=== PATIENT | female | born 1960 | race Caucasian/White ===

== ENCOUNTER → 2018-04-01 15:16 | Outpatient (CLI) | payer OTHER, SELFPAY ==
[2018-04-01 15:42] LABS: Add Manual Diff / Slide Review NO; Basophils Percent Auto 0.5 % (0-2); Eosinophils Percent Auto 3.1 % (2-4); Hematocrit 38.5 % (36-46); Hemoglobin 12.9 g/dL (12.0-16.0); Lymphocytes Percent Auto 29.9 % (25-40); Mean Corpuscular HGB Conc 33.4 % (30-36); Mean Corpuscular Hemoglobin 28.1 PG (26-34); Monocytes Percent Auto 7.8 % (3-14); Neutrophils Absolute Auto 4100 /uL (3000-5900); Neutrophils Percent Auto 58.7 % (50-75); Platelet Count 222 X10^3/uL (150-400); Red Blood Cell Count 4.59 X10^6/uL (4.0-5.2); Red Cell Distribution Width 13.3 % (11.6-14.8); White Blood Cell Count 6.9 X10^3/uL (4.5-11.0)
[2018-04-01 16:26] LABS: Alanine Aminotransferase 25 IU/L (9-52); Albumin 4.2 g/dL (3.5-5.0); Albumin Globulin Ratio 1.4 (1.0-2.8); Alkaline Phosphatase 104 U/L (38-126); Aspartate Aminotransferase 33 IU/L (14-36); Bilirubin Total 0.3 mg/dL (0.2-1.3); Blood Urea Nitrogen 16 mg/dL (7-17); Calcium 9.5 mg/dL (8.4-10.2); Carbon Dioxide 25 mmol/L (22-32); Chloride 104 mmol/L (98-107); Estimated Glomerular Filt Rate > 60.0 mL/min (>60); Globulin 2.9 g/dL (1.7-4.1); Glucose 94 mg/dL (70-100); HEMOLYSIS < 15 (0-50); Potassium 4.1 mmol/L (3.4-5.1); Sodium 139 mmol/L (137-145); Total Protein 7.1 g/dL (6.3-8.2)
[2018-04-05 08:14] LABS: Cancer Antigen 27.29 17 U/mL (< 38)
== END ==
PROVIDERS: PCP Physician Assistant Medical; Visit Provider Nurse Practitioner Gerontology
DX: C50.919 Malignant neoplasm of unspecified site of unspecified female breast (principal); N63.20 Unspecified lump in the left breast, unspecified quadrant
CPT/HCPCS: 36415; 80053; 85025; 86300

== ENCOUNTER → 2018-04-29 12:45 | Outpatient (CLI) | payer OTHER, SELFPAY ==
--- NOTE | 2018-04-29 12:46 | DI.MG.S_ITS ---
BILATERAL DIGITAL DIAGNOSTIC MAMMOGRAM 3D/2D POST LUMPECTOMY: 04/29/2018 CLINICAL: Patient reports diffuse left breast firmness. Personal history of breast cancer. Family history of breast cancer. Comparison is made to exams dated: 04/03/2017 mammogram, 01/02/2016 mammogram, and 02/20/2016 breast MRI [facility]. The tissue of both breasts is extremely dense, which lowers the sensitivity of mammography. Patient reports diffuse left breast firmness but is unable to point to a focal location of firmness at the time of today's exam. There are postsurgical changes of the upper outer left breast including surgical clips, scarring, and areas of fat necrosis. There is an oval obscured mass in the right breast at anterior depth central to just inferior to the nipple. There are bilateral mole markers. No other significant masses, calcifications, or other findings are seen in either breast. IMPRESSION: INCOMPLETE: NEEDS ADDITIONAL IMAGING EVALUATION 1) Patient reports diffuse left breast firmness but is unable to point to a focal location of firmness at the time of today's exam. As such, a targeted ultrasound could not be performed. There are postsurgical changes of the upper outer left breast including surgical clips, scarring, and areas of fat necrosis, which could contribute to the patient's reported sensation of firmness in the left breast. 2) There is a greater than 1 cm oval obscured mass in the right breast at anterior depth central to just inferior to the nipple. A targeted ultrasound is recommended for further evaluation. This exam was interpreted at Station ID: [id number]. NOTE: For mammograms, a report in lay terms will be sent to the patient. Approximately 15% of breast malignancies will not be visualized mammographically. In the management of a palpable breast mass, a negative mammogram must not discourage biopsy of a clinically suspicious lesion. Electronically Signed By: Rob Weiss M.D. ecl/:04/30/2018 09:15:06 copy to: Mackenzie Granda letter sent: Additional Imaging Needed ACR BI-RADS Category 0: Incomplete 3340F
--- NOTE | 2018-04-29 13:53 | DI.US.S_ITS ---
ULTRASOUND OF RIGHT BREAST: 04/29/2018 CLINICAL: Patient returns today to evaluate a density in the right breast. Comparison is made to exams dated: 04/29/2018 mammogram, 04/03/2017 mammogram, 02/20/2016 breast MRI, 01/02/2016 mammogram - [facility], and 07/09/2015 mammogram - [facility]. Real-time and Doppler ultrasound of the lower right breast along the 5-6 o'clock radians were performed. Bobby scale images of the real-time examination were reviewed. There is a benign 1.5 cm x 1.5 cm x 1.4 cm oval cyst in the right breast at 5 o'clock in the retroareolar region. This oval cyst is hypoechoic with internal echoes and posterior acoustic enhancement. This correlates with mammography findings. Color flow imaging demonstrates that there is no vascularity present. IMPRESSION: BENIGN 1) The 1.5 cm x 1.5 cm x 1.4 cm oval cyst in the right breast is consistent with a complicated cyst and is benign. There is no sonographic evidence of malignancy in the imaged portions of the right breast. A 1 year screening mammogram is recommended. The patient is advised to monitor her breasts and to return sooner for re-evaluation should she feel anything grow or change. 2) Patient reports diffuse left breast firmness but is unable to point to a focal location of firmness at the time of today's exam. As such, a targeted left breast ultrasound could not be performed. There are postsurgical changes of the upper outer left breast including surgical clips, scarring, and areas of fat necrosis on diagnostic mammography performed earlier the same day, which could contribute to the patient's reported sensation of firmness in the left breast. Clinical follow-up recommended for further evaluation and management. This exam was interpreted at Station ID: [id number]. Electronically Signed By: Rob Weiss M.D. ecl/:04/30/2018 09:40:12 copy to: Mackenzie Granda letter sent: Clinical Evaluation Ultrasound BI-RADS: 2 Benign
== END ==
PROVIDERS: PCP Physician Assistant Medical; Visit Provider Nurse Practitioner Gerontology
DX: R92.8 Other abnormal and inconclusive findings on diagnostic imaging of breast (principal); N60.01 Solitary cyst of right breast; Z85.3 Personal history of malignant neoplasm of breast; Z80.3 Family history of malignant neoplasm of breast
CPT/HCPCS: 76642; 77066; G0279

== ENCOUNTER → 2018-07-28 15:32 | Outpatient (CLI) | payer OTHER, SELFPAY ==
[2018-07-28 16:01] LABS: Add Manual Diff / Slide Review NO; Basophils Absolute Auto 0 /uL (0-100); Basophils Percent Auto 0.7 % (0-2); Eosinophils Absolute Auto 200 /uL (0-450); Eosinophils Percent Auto 3.9 % (2-4); Hematocrit 39.2 % (36-46); Hemoglobin 13.1 g/dL (12.0-16.0); Lymphocytes Absolute Auto 1700 /uL (1100-4500); Lymphocytes Percent Auto 27.2 % (25-40); Mean Corpuscular HGB Conc 33.5 % (30-36); Mean Corpuscular Hemoglobin 28.3 PG (26-34); Mean Corpuscular Volume 84.3 fL (80-100); Monocytes Absolute Auto 500 /uL (0-900); Monocytes Percent Auto 7.7 % (3-14); Neutrophils Absolute Auto 3900 /uL (1500-7000); Neutrophils Percent Auto 60.5 % (50-75); Platelet Count 229 X10^3/uL (150-400); Red Blood Cell Count 4.65 X10^6/uL (4.0-5.2); Red Cell Distribution Width 13.3 % (11.6-14.8); White Blood Cell Count 6.4 X10^3/uL (4.5-11.0)
[2018-07-28 16:15] LABS: Alanine Aminotransferase 28 IU/L (9-52); Albumin 4.4 g/dL (3.5-5.0); Albumin Globulin Ratio 1.6 (1.0-2.8); Alkaline Phosphatase 94 U/L (38-126); Aspartate Aminotransferase 31 IU/L (14-36); BUN Creatinine Ratio 21.4 (6-22); Bilirubin Total 0.2 mg/dL (0.2-1.3); Blood Urea Nitrogen 15 mg/dL (7-17); Calcium 9.2 mg/dL (8.4-10.2); Carbon Dioxide 24 mmol/L (22-32); Chloride 103 mmol/L (98-107); Estimated Glomerular Filt Rate > 60.0 mL/min (>60); Globulin 2.8 g/dL (1.7-4.1); Glucose 121 mg/dL (70-100); HEMOLYSIS 18 (0-50); Potassium 3.9 mmol/L (3.4-5.1); Sodium 137 mmol/L (137-145); Total Protein 7.2 g/dL (6.3-8.2)
[2018-07-28 16:32] LABS: Follicle Stimulating Hormone 7.23 mIU/mL
[2018-07-28 16:38] LABS: Luteinizing Hormone < 0.22 mIU/mL
== END ==
PROVIDERS: PCP Physician Assistant Medical; Visit Provider Nurse Practitioner Gerontology
DX: C50.912 Malignant neoplasm of unspecified site of left female breast (principal)
CPT/HCPCS: 80053; 83001; 83002; 85025

== ENCOUNTER → 2019-05-27 11:14 | Outpatient (CLI) | payer OTHER, SELFPAY ==
--- NOTE | 2019-05-27 11:16 | DI.MG.S_ITS ---
BILATERAL DIGITAL SCREENING MAMMOGRAM 3D/2D WITH CAD: 05/27/2019 CLINICAL: Routine screening. Personal history of left breast cancer. Family history of breast cancer. Comparison is made to exams dated: 05/27/2019 mammogram, 04/29/2018 mammogram, 04/03/2017 mammogram, 03/27/2015 mammogram, and 01/02/2016 mammogram - [facility]. The tissue of both breasts is extremely dense, which lowers the sensitivity of mammography. Current study was also evaluated with a Computer Aided Detection (CAD) system. There are benign calcifications in the left breast. There also are benign post operative findings in the left breast. No significant masses, calcifications, or other findings are seen in either breast. There has been no significant interval change. IMPRESSION: There is no mammographic evidence of malignancy. A 1 year screening mammogram is recommended. This exam was interpreted at Station ID: [id number]. NOTE: For mammograms, a report in lay terms will be sent to the patient. Approximately 15% of breast malignancies will not be visualized mammographically. In the management of a palpable breast mass, a negative mammogram must not discourage biopsy of a clinically suspicious lesion. Electronically Signed By: Tatum hewitt/sofi:05/27/2019 13:53:28 copy to: Mackenzie Granda copy to: MARIBELL WINKLER letter sent: Normal Exam ACR BI-RADS Category 2: Benign Finding(s) 3342F
== END ==
PROVIDERS: PCP Physician Assistant Medical; Visit Provider Radiology Radiation Oncology
DX: Z12.31 Encounter for screening mammogram for malignant neoplasm of breast (principal); C50.912 Malignant neoplasm of unspecified site of left female breast; Z80.3 Family history of malignant neoplasm of breast; Z17.0 Estrogen receptor positive status [ER+]; Z79.811 Long term (current) use of aromatase inhibitors
CPT/HCPCS: 77063; 77067

== ENCOUNTER → 2020-02-29 14:39 | Outpatient (CLI) | payer OTHER, SELFPAY | PROVIDERS: PCP Physician Assistant Medical; Referring Provider Internal Medicine Hematology & Oncology; Visit Provider Internal Medicine Hematology & Oncology | DX: C50.912 Malignant neoplasm of unspecified site of left female breast (principal); M85.851 Other specified disorders of bone density and structure, right thigh; Z78.0 Asymptomatic menopausal state | CPT/HCPCS: 77080 ==

== ENCOUNTER → 2020-05-28 12:22 | Outpatient (CLI) | payer OTHER, SELFPAY ==
--- NOTE | 2020-05-28 12:23 | DI.MG.S_ITS ---
BILATERAL DIGITAL SCREENING MAMMOGRAM 3D/2D WITH CAD: 05/28/2020 CLINICAL: Routine screening. Breast cancer. Comparison is made to exams dated: 05/27/2019 mammogram, 05/27/2019 mammogram, and 04/29/2018 mammogram - [facility]. The tissue of both breasts is extremely dense, which lowers the sensitivity of mammography. Current study was also evaluated with a Computer Aided Detection (CAD) system. There are grouped fine calcifications in the right breast central to the nipple anterior depth. There are surgical clips in the left breast at 1 o'clock posterior depth. This is not significantly changed and correlates with surgery. There is architectural distortion, a post-surgical scar, skin retraction, thickening, and trabecular thickening associated with the surgical clips. No other significant masses or calcifications are seen in either breast. IMPRESSION: INCOMPLETE: NEEDS ADDITIONAL IMAGING EVALUATION The grouped fine calcifications in the right breast central to the nipple anterior depth are indeterminate. Mediolateral, spot magnification, and additional views are recommended. This exam was interpreted at Station ID: [id number]. NOTE: For mammograms, a report in lay terms will be sent to the patient. Approximately 15% of breast malignancies will not be visualized mammographically. In the management of a palpable breast mass, a negative mammogram must not discourage biopsy of a clinically suspicious lesion. Electronically Signed By: David wilcox/sofi:05/29/2020 10:36:26 copy to: MARIBELL WINKLER letter sent: Additional Imaging Needed ACR BI-RADS Category 0: Incomplete 3340F
== END ==
PROVIDERS: PCP Physician Assistant Medical; Referring Provider Internal Medicine Hematology & Oncology; Visit Provider Internal Medicine Hematology & Oncology
DX: Z12.31 Encounter for screening mammogram for malignant neoplasm of breast (principal); C50.919 Malignant neoplasm of unspecified site of unspecified female breast
CPT/HCPCS: 77063; 77067

== ENCOUNTER → 2020-06-21 13:31 | Outpatient (CLI) | payer OTHER, SELFPAY ==
--- NOTE | 2020-06-21 | DI.MG.S_ITS ---
UNILATERAL RIGHT DIGITAL DIAGNOSTIC MAMMOGRAM 3D/2D WITH ADDITIONAL VIEWS: 06/21/2020 CLINICAL: Additional evaluation requested from prior study. Comparison is made to exams dated: 05/28/2020 mammogram, 05/27/2019 mammogram, and 04/29/2018 mammogram - [facility]. The tissue of right breast is extremely dense, which lowers the sensitivity of mammography. There are benign grouped fine calcifications in the right breast central to the nipple anterior depth. These are not seen in additional views. No other significant masses or calcifications are seen in the breast. IMPRESSION: BENIGN There is no mammographic evidence of malignancy. Return to annual mammogram screening schedule is recommended. This exam was interpreted at Station ID: [id number]. NOTE: For mammograms, a report in lay terms will be sent to the patient. Approximately 15% of breast malignancies will not be visualized mammographically. In the management of a palpable breast mass, a negative mammogram must not discourage biopsy of a clinically suspicious lesion. Electronically Signed By: Chuy Hines acr/:06/21/2020 14:07:22 copy to: MARIBELL WINKLER letter sent: Normal Exam ACR BI-RADS Category 2: Benign Finding(s) 3342F
== END ==
PROVIDERS: PCP Physician Assistant Medical; Referring Provider Internal Medicine Hematology & Oncology; Visit Provider Internal Medicine Hematology & Oncology
DX: R92.8 Other abnormal and inconclusive findings on diagnostic imaging of breast (principal)
CPT/HCPCS: 77065; G0279

== ENCOUNTER → 2021-06-26 15:18 | Outpatient (CLI) | payer OTHER, SELFPAY ==
--- NOTE | 2021-06-26 15:19 | DI.MG.S_ITS ---
BILATERAL DIGITAL SCREENING MAMMOGRAM 3D/2D WITH CAD: 06/26/2021 CLINICAL: Routine screening. Personal history of left breast cancer. Family history of breast cancer. Comparison is made to exams dated: 06/21/2020 mammogram, 05/28/2020 mammogram, and 05/27/2019 mammogram - [facility]. The tissue of both breasts is extremely dense, which lowers the sensitivity of mammography. Current study was also evaluated with a Computer Aided Detection (CAD) system. No significant masses, calcifications, or other findings are seen in either breast. There has been no significant interval change. IMPRESSION: NEGATIVE There is no mammographic evidence of malignancy. A 1 year screening mammogram is recommended. This exam was interpreted at Station ID: [id number]. NOTE: For mammograms, a report in lay terms will be sent to the patient. Approximately 15% of breast malignancies will not be visualized mammographically. In the management of a palpable breast mass, a negative mammogram must not discourage biopsy of a clinically suspicious lesion. Electronically Signed By: Chan Hairston M.D., jr/sofi:06/27/2021 10:45:21 copy to: MARIBELL WINKLER letter sent: Normal Exam ACR BI-RADS Category 1: Negative 3341F
== END ==
PROVIDERS: PCP Physician Assistant Medical; Referring Provider Physician Assistant Medical; Visit Provider Physician Assistant Medical
DX: Z12.31 Encounter for screening mammogram for malignant neoplasm of breast (principal); Z85.3 Personal history of malignant neoplasm of breast; Z80.3 Family history of malignant neoplasm of breast
CPT/HCPCS: 77063; 77067

== ENCOUNTER → 2022-02-10 10:20 | Outpatient (CLI) | payer OTHER, SELFPAY | PROVIDERS: PCP Physician Assistant Medical; Referring Provider Internal Medicine Hematology & Oncology; Visit Provider Internal Medicine Hematology & Oncology | DX: Z13.820 Encounter for screening for osteoporosis (principal); Z78.0 Asymptomatic menopausal state; M85.851 Other specified disorders of bone density and structure, right thigh; M85.852 Other specified disorders of bone density and structure, left thigh | CPT/HCPCS: 77080; 77081 ==

== ENCOUNTER 2022-12-23 13:39 | Emergency (ER) | payer OTHER, SELFPAY ==
[2022-12-23] VITALS (8 sets, daily range): BP systolic 117–153; BP diastolic 72–88; PULSE 56–66; RESP 18; TEMP 36.4; O2SAT 95–99; BMI 27.2
--- NOTE | 2022-12-23 13:53 | DI.RAD.S_ITS ---
PROCEDURE: XR CHEST 1V INDICATIONS: chest pain TECHNIQUE: One view of the chest was acquired. COMPARISON: [facility], , CHEST 1 VIEW, 03/22/2014, 10:23. FINDINGS: Surgical changes and devices: None. Lungs and pleura: Lungs are clear. No pleural effusions or pneumothorax. Mediastinum: Mildly tortuous thoracic aorta is seen. Heart size is normal. Bones and chest wall: No suspicious bony lesions. Overlying soft tissues appear unremarkable. IMPRESSION: No acute cardiopulmonary pathology. Dictated by: Randolph White M.D. on 12/23/2022 at 14:26 Approved by: Randolph White M.D. on 12/23/2022 at 14:27
[2022-12-23 14:40] LABS: Add Manual Diff / Slide Review NO; Basophils Absolute Auto 0 /uL (0-100); Basophils Percent Auto 0.6 % (0-2); Eosinophils Absolute Auto 200 /uL (0-450); Eosinophils Percent Auto 3.3 % (2-4); Hematocrit 38.7 % (36-46); Lymphocytes Absolute Auto 1800 /uL (1100-4500); Lymphocytes Percent Auto 27.8 % (25-40); Mean Corpuscular HGB Conc 33.6 % (30-36); Mean Corpuscular Hemoglobin 27.9 PG (26-34); Monocytes Absolute Auto 400 /uL (0-900); Monocytes Percent Auto 6.7 % (3-14); Neutrophils Absolute Auto 4000 /uL (1500-7000); Neutrophils Percent Auto 61.6 % (50-75); Platelet Count 258 X10^3/uL (150-400); Red Blood Cell Count 4.67 X10^6/uL (4.0-5.2); Red Cell Distribution Width 13.4 % (11.6-14.8); White Blood Cell Count 6.5 X10^3/uL (4.5-11.0)
[2022-12-23 14:49] LABS: Prothrombin Time 11.2 SECONDS (10.1-12.7)
[2022-12-23 14:51] LABS: Alanine Aminotransferase 22 IU/L (<35); Albumin 4.3 g/dL (3.5-5.0); Albumin Globulin Ratio 1.4 (1.0-2.8); Alkaline Phosphatase 99 U/L (38-126); Aspartate Aminotransferase 28 IU/L (14-36); Bilirubin Total 0.4 mg/dL (0.2-1.3); Blood Urea Nitrogen 17 mg/dL (7-17); Calcium 9.2 mg/dL (8.4-10.2); Carbon Dioxide 25 mmol/L (22-32); Chloride 102 mmol/L (98-107); Creatine Kinase 68 U/L (30-135); Estimated Glomerular Filt Rate > 60 mL/min (>60); Glucose 110 mg/dL (80-110); HEMOLYSIS < 15 (0-50); Lipase 121 U/L (23-300); Magnesium 2.1 mg/dL (1.6-2.3); Potassium 3.8 mmol/L (3.4-5.1); Sodium 134 mmol/L (137-145); Total Protein 7.3 g/dL (6.3-8.2)
[2022-12-23 14:52] LABS: PTT Partial Thromboplastin Tim 30 SECONDS (26-36)
[2022-12-23 15:01] LABS: Troponin I < 0.012 ng/mL (0.01-0.034)
--- NOTE | 2022-12-23 15:53 | ED_ITS ---
HPI - Chest Pain General Chief Complaint: Chest Pain Stated Complaint: Heart issues, sent from urgent care Time Seen by Provider: 12/23/22 14:41 Source: patient Mode of arrival: Ambulatory Limitations: no limitations History of Present Illness HPI narrative: Patient here for atypical chest pain. Last night she had right jaw pain radiating down to her chest. It lasted about 30 minutes. No dyspnea no syncope no nausea no diaphoresis. This morning she had a bandlike epigastric discomfort. She is had this before. Patient denies any previous history of heart disease. No family history of coronary disease. Does not smoke. She does have history of breast cancer. Has not had a stress test in the past. Denies any recent injury or illness. Related Data Home Medications Medication Instructions Recorded Confirmed magnesium citrate 100 mg tablet 100 mg PO Q DAY ##0 10/20/17 02/27/22 ascorbic acid (vitamin C) 1,000 mg 500 mg PO DAILY 04/06/18 02/27/22 tablet (Vitamin C) cholecalciferol (vitamin D3) 50 2,000 unit PO DAILY 04/06/18 02/27/22 mcg (2,000 unit) capsule (Vitamin D3) omega-3s 300 [id number] 1 cap DAILY 04/06/18 02/27/22 [id number] oil 1,000 mg capsule (Barton-3 Fish Oil) Previous Rx's Medication Instructions Recorded venlafaxine 37.5 mg 37.5 mg PO QDAY #60 caps 09/08/17 capsule,extended release 24 hr Allergies Allergy/AdvReac Type Severity Reaction Status Date / Time latex Allergy Mild ITCHY, RASH Verified 12/23/22 16:16 SEASONAL ALLERGIES Allergy Unknown Uncoded 12/23/22 16:16 Review of Systems Review of Systems Narrative: GENERAL: negative chills, fatigue, malaise, fever, sweats. HEENT: negative sinus pain, ear pain, sore throat RESPIRATORY: negative dyspnea, cough CARDIOVASCULAR: Positive chest pain, negative palpitations GASTROINTESTINAL: negative nausea, vomiting, abdominal pain : negative dysuria, frequency, hematuria MUSCULOSKELETAL: negative muscle or bony pain SKIN: negative rash, skin lesions NEUROLOGIC: negative weakness, numbness ROS Unobtainable: All systems reviewed & are unremarkable except as noted in HPI and below Patient History Medical History Breast cancer Surgical History Port catheter in place Status post breast lumpectomy Status post knee surgery Family History Grandmother Diabetes mellitus Grandmother Mental health problem Social History Smoking Status: Never smoker Smoking Status: Never smoker Substance Use Type: does not use Exam Narrative Exam Narrative: GENERAL: in no distress, not toxic not dyspneic HEAD: Normocephalic. EYES: Pupils equal round ENT: Mucous membranes moist. NECK: Trachea midline. CARDIOVASCULAR: Regular rate and rhythm without murmurs RESPIRATORY: Clear to auscultation. Breath sounds equal bilaterally. No wheezes, rales, or rhonchi. GASTROINTESTINAL: Abdomen soft, non-tender EXTREMITIES: No gross deformities. BACK: No flank tenderness. NEURO: AOx4. SKIN: Warm and dry PSYCH: Not anxious, is cooperative Initial Vital Signs Initial Vital Signs: Vital Signs Temperature 97.5 F L 12/23/22 13:43 Pulse Rate 66 12/23/22 13:43 Respiratory Rate 18 12/23/22 13:43 Blood Pressure 153/77 H 12/23/22 13:43 Pulse Oximetry 99 12/23/22 13:43 Oxygen Delivery Method Room Air 12/23/22 13:43 Course Orders Ordered: Discontinued Medications Aspirin (Aspirin 81 Mg Chew Tab) 324 mg PO NOW ONE Stop: 12/23/22 15:58 Last Admin: 12/23/22 16:17 Dose: 324 mg Documented By: AT Vital Signs Vital signs: Vital Signs - 8 hr 12/23/22 13:43 12/23/22 14:34 12/23/22 15:30 Temperature 97.5 F L Pulse Rate 66 65 58 L Respiratory Rate 18 18 Blood Pressure 153/77 H 127/85 128/79 Pulse Oximetry 99 99 97 Oxygen Delivery Method Room Air Room Air Room Air 12/23/22 16:00 12/23/22 15:00 12/23/22 16:30 Temperature Pulse Rate 64 59 L 65 Respiratory Rate 18 Blood Pressure 137/88 118/72 141/83 H Pulse Oximetry 97 95 99 Oxygen Delivery Method Room Air Room Air Room Air 12/23/22 17:00 12/23/22 18:00 Temperature Pulse Rate 56 L 60 Respiratory Rate 18 Blood Pressure 117/73 136/85 Pulse Oximetry 98 99 Oxygen Delivery Method Room Air Room Air MDM - Chest Pain Lab Data 12/23/22 14:29 12/23/22 14:29 Labs: Lab Results 12/23/22 12/23/22 12/23/22 Range/Units 14:29 14:29 14:29 WBC 6.5 (4.5-11.0) X10^3/uL RBC 4.67 (4.0-5.2) X10^6/uL Hgb 13.0 (12.0-16.0) g/dL Hct 38.7 (36-46) % MCV 83.0 (80-100) fL MCH 27.9 (26-34) PG MCHC 33.6 (30-36) % RDW 13.4 (11.6-14.8) % Plt Count 258 (150-400) X10^3/uL Neut % (Auto) 61.6 (50-75) % Lymph % (Auto) 27.8 (25-40) % Prentiss % (Auto) 6.7 (3-14) % Eos % (Auto) 3.3 (2-4) % Baso % (Auto) 0.6 (0-2) % Neut # (Auto) 4000 (5219-8767) /uL Lymph # (Auto) 1800 (4176-1688) /uL Prentiss # (Auto) 400 (0-900) /uL Eos # (Auto) 200 (0-450) /uL Baso # (Auto) 0 (0-100) /uL PT 11.2 (10.1-12.7) SECONDS INR 1.0 (0.9-1.3) APTT 30 (26-36) SECONDS Sodium 134 L (137-145) mmol/L Potassium 3.8 (3.4-5.1) mmol/L Chloride 102 (98-107) mmol/L Carbon Dioxide 25 (22-32) mmol/L BUN 17 (7-17) mg/dL Creatinine 0.63 (0.52-1.04) mg/dL Estimated GFR > 60 (>60) mL/min BUN/Creatinine Ratio 27.0 H (6-22) Glucose 110 (80-110) mg/dL Calcium 9.2 (8.4-10.2) mg/dL Magnesium 2.1 (1.6-2.3) mg/dL Total Bilirubin 0.4 (0.2-1.3) mg/dL AST 28 (14-36) IU/L ALT 22 (<35) IU/L Alkaline Phosphatase 99 (38-126) U/L Total Creatine Kinase 68 (30-135) U/L CK-MB (CK-2) TNP CK-MB (CK-2) Rel Index TNP Troponin I < 0.012 (0.01-0.034) ng/mL Total Protein 7.3 (6.3-8.2) g/dL Albumin 4.3 (3.5-5.0) g/dL Globulin 3.0 (1.7-4.1) g/dL Albumin/Globulin Ratio 1.4 (1.0-2.8) Lipase 121 (23-300) U/L 12/23/22 Range/Units 16:20 WBC (4.5-11.0) X10^3/uL RBC (4.0-5.2) X10^6/uL Hgb (12.0-16.0) g/dL Hct (36-46) % MCV (80-100) fL MCH (26-34) PG MCHC (30-36) % RDW (11.6-14.8) % Plt Count (150-400) X10^3/uL Neut % (Auto) (50-75) % Lymph % (Auto) (25-40) % Prentiss % (Auto) (3-14) % Eos % (Auto) (2-4) % Baso % (Auto) (0-2) % Neut # (Auto) (2737-6863) /uL Lymph # (Auto) (3799-4264) /uL Prentiss # (Auto) (0-900) /uL Eos # (Auto) (0-450) /uL Baso # (Auto) (0-100) /uL PT (10.1-12.7) SECONDS INR (0.9-1.3) APTT (26-36) SECONDS Sodium (137-145) mmol/L Potassium (3.4-5.1) mmol/L Chloride (98-107) mmol/L Carbon Dioxide (22-32) mmol/L BUN (7-17) mg/dL Creatinine (0.52-1.04) mg/dL Estimated GFR (>60) mL/min BUN/Creatinine Ratio (6-22) Glucose (80-110) mg/dL Calcium (8.4-10.2) mg/dL Magnesium (1.6-2.3) mg/dL Total Bilirubin (0.2-1.3) mg/dL AST (14-36) IU/L ALT (<35) IU/L Alkaline Phosphatase (38-126) U/L Total Creatine Kinase 57 (30-135) U/L CK-MB (CK-2) TNP CK-MB (CK-2) Rel Index TNP Troponin I < 0.012 (0.01-0.034) ng/mL Total Protein (6.3-8.2) g/dL Albumin (3.5-5.0) g/dL Globulin (1.7-4.1) g/dL Albumin/Globulin Ratio (1.0-2.8) Lipase (23-300) U/L Imaging Data Chest x-ray: Radiologist's Impression: [address] [address] XRay Report Signed Patient: Bashir Prescott MR#: [id number] : 1960 Acct:[id number] Age/Sex: 62 / F Date of Service: 12/23/22 Loc: Accession Number: [id number] ?? Procedure: XR chest 1V Ordering Provider: Carmelo Aden MD PROCEDURE:? XR CHEST 1V ? INDICATIONS:? chest pain ? TECHNIQUE:? One view of the chest was acquired.? ? COMPARISON:? [facility], , CHEST 1 VIEW, 03/22/2014, 10:23. ? FINDINGS:? ? Surgical changes and devices:? None.? ? Lungs and pleura:? Lungs are clear.? No pleural effusions or pneumothorax.? ? Mediastinum:? Mildly tortuous thoracic aorta is seen.? Heart size is normal.? ? Bones and chest wall:? No suspicious bony lesions.? Overlying soft tissues james ear unremarkable.? ? IMPRESSION:? No acute cardiopulmonary pathology. ? ? Dictated by: Randolph White M.D. on 12/23/2022 at 14:26 ? ? Approved by: Randolph White M.D. on 12/23/2022 at 14:27 ? [facility] Narrative Medical decision making narrative: Patient here for atypical chest pain. Last night she had right jaw pain radiating down to her chest. It lasted about 30 minutes. No dyspnea no syncope no nausea no diaphoresis. This morning she had a bandlike epigastric discomfort. She is had this before. Patient denies any previous history of heart disease. No family history of coronary disease. Does not smoke. She does have history of breast cancer. Has not had a stress test in the past. Denies any recent injury or illness. After history and exam CBC CMP troponin x2 chest x-ray EKG [facility] CC: Chest pain Complicating co-morbidities: Breast cancer Data collected from: Patient Medical records reviewed: No recent visits for this complaint Differential considered: Includes but not limited to STEMI non-STEMI stable an martín unstable angina Exam documented above, pertinent findings include: Nontender chest Lab Test results independently reviewed as above. Pertinent findings: WBC 6.5 hemoglobin 13 hematocrit 38.7 BUN 17 creatinine 0.63 troponin less than 0.012 x2 Independently reviewed EKG normal sinus rhythm rate [address] elevation or depression Imaging studies independently reviewed: Chest x-ray no acute process Consultations: 3:[address] Cobb, cardiology, recommends admission observation stress test echocardiogram 5:00 p.m.. Spoke with hospitalist, Dr. Galeas, he will see patient to evaluate whether she needs admission. 6:[address] Galeas, has seen and evaluated patient. He has instructed me to discharge patient. He is in the emergency department personally. Treatments: Aspirin Re-evaluations: 5:00 p.m.. Chest pain-free. Patient does agree for admission. I did discuss with poured pipe maker. 6:00 p.m.. I spoke with patient again. She just spoke with Dr. Galeas, at this time she does desire discharge home. She has reviewed with him treatment plan and she will follow up with her primary care for outpatient follow up and stress test. Discussion: Appropriate for admission. I did review with poured pipe maker and recommends admission for stress test echocardiogram. Addendum, hospitalist has seen patient himself. Dr. Galeas has evaluated patient, he has instructed to have patient discharged. Diagnosis: Atypical chest pain Discharge Plan Departure Patient Disposition: Home Clinical Impression: Atypical chest pain Instructions: DI for Atypical Chest Pain Activity Restrictions/Additional Instructions: You have been evaluated by Internal Medicine/hospitalist for your chest pain. At this time, the hospitalist, Dr. Galeas has examined you and reviewed your medical chart and feels you can be discharged home and follow up with her primary care physician for outpatient stress test. Return immediately if worse if any questions or concerns. Laboratory studies are reassuring at this time. Prescriptions: No Action venlafaxine 37.5 MG capsule,extended release 24hr 37.5 mg PO QDAY Qty: 60 1RF magnesium citrate 100 MG tablet 100 mg PO Q DAY Qty: 0 cholecalciferol (vitamin D3) [Vitamin D3] 2,000 unit Capsule 2,000 unit PO DAILY ascorbic acid (vitamin C) [Vitamin C] 1,000 mg Tablet 500 mg PO DAILY Barton-3 Fish Oil 300-1,000 mg Capsule 1 cap DAILY Referrals: Mackenzie Granda PA-C [Primary Care Provider] - Stand Alone Forms: Patient Portal/API
[2022-12-23] MEDS: ASPIRIN 81 MG CHEW TAB 324 MG PO (16:17)
[2022-12-23 16:42] LABS: Creatine Kinase 57 U/L (30-135)
[2022-12-23 16:55] LABS: Troponin I < 0.012 ng/mL (0.01-0.034)
--- NOTE | 2022-12-23 17:19 | PC.NURSE ---
Okayed by Dr. Aden to feed pt, provided sandwich and juice per request.
--- NOTE | 2022-12-23 18:21 | PM.HP.1 ---
History of Present Illness History of Present Illness Date Patient Seen: 12/23/22 Time Patient Seen: 18:21 Chief complaint: Heart issues, sent from urgent care Narrative: This is a 62 year old female with PMH of breast cancer who presents with chest pain that started last night. Patient states yesterday evening when she went to lay down for bed she developed R jaw pain which radiated down into her chest. She is unable to describe the quality of the pain accurately. She denies any nausea, diaphoresis, arm numbness or tingling, palpitation, recent dyspnea on exertion, orthopnea, or abdominal pain. She has had a few prior episodes of reflux but this seemed a bit different. She has a few relatives with pacemakers, but denies any history of ischemic heart disease she is aware of. She has never smoked. She denies prior episodes of discomfort like this one. In the emergency room, her vitals, labs, and imaging were unremarkable. Troponins were negative x2. EKG showed NSR, no prior tracing is available for review. Medicine was asked to review for admission for stress testing. [facility] Medical History Breast cancer Surgical History Port catheter in place Status post breast lumpectomy Status post knee surgery Family History Grandmother Diabetes mellitus Grandmother Mental health problem Social History Smoking Status: Never smoker Meds Home Medications and Allergies Home Medications Medication Instructions Recorded Confirmed Type venlafaxine 37.5 mg 37.5 mg PO QDAY #60 caps 09/08/17 02/27/22 Rx capsule,extended release 24 hr magnesium citrate 100 mg tablet 100 mg PO Q DAY ##0 10/20/17 02/27/22 History ascorbic acid (vitamin C) 1,000 mg 500 mg PO DAILY 04/06/18 02/27/22 History tablet (Vitamin C) cholecalciferol (vitamin D3) 50 2,000 unit PO DAILY 04/06/18 02/27/22 History mcg (2,000 unit) capsule (Vitamin D3) omega-3s 300 rx-[id number]-[id number]-[id number] 1 cap DAILY 04/06/18 02/27/22 History [id number] oil 1,000 mg capsule ([place]uke-3 Fish Oil) Allergies Allergy/AdvReac Type Severity Reaction Status Date / Time latex Allergy Mild ITCHY, RASH Verified 12/23/22 16:16 SEASONAL ALLERGIES Allergy Unknown Uncoded 12/23/22 16:16 Review of Systems Review of Systems Narrative: All other systems reviewed with the patient and are negative unless otherwise stated. Exam Vital Signs (past 8 hours): - 12/23/22 13:43 12/23/22 14:34 Temperature 97.5 F L Pulse Rate 66 65 Respiratory Rate 18 18 Blood Pressure 153/77 H 127/85 Pulse Oximetry 99 99 Oxygen Delivery Method Room Air Room Air Oxygen Delivery Method Room Air Narrative Exam Narrative: General:? Patient is well developed and well nourished, in no distress at this time. HEENT:? Normocephalic, atraumatic, extraocular muscles intact, oral pharynx is clear and mucous membranes are moist. Neck: supple and symmetric, trachea is midline, no cervical adenopathy. Negative for JVD Chest:? Normal AP diameter and contour without kyphoscoliosis, no tachypnea, equal chest rise bilaterally. Lungs:? CTA b/l no wheezing rhonchi or rales. Cardio:?RRR no m/r/g. Abdomen: S NT ND. No CVA tenderness. Musculoskeletal:? Muscle strength and tone are equal within normal limits, no deformity. Extremities: No edema or joint effusions. No cyanosis or clubbing. Skin:? Pale,? Warm to touch,dry and intact without rashes, ulcerations or petechiae.? Neuro:? Alert and orientated x3,? sensation to touch intact in all extremities, no gross deficits noted of cranial nerves. Psych:? Patient has a well-kept appearance, appropriate affect, mental status attitude thought context and judgment are appropriate for age. Objective ECG Impression: Normal sinus rhythm, no prior tracing. No ST changes consistent with ischemia. Labs 12/23/22 14:29 12/23/22 14:29 Labs: Laboratory Results - last 24 hr 12/23/22 12/23/22 12/23/22 14:29 14:29 14:29 WBC 6.5 RBC 4.67 Hgb 13.0 Hct 38.7 MCV 83.0 MCH 27.9 MCHC 33.6 RDW 13.4 Plt Count 258 Neut % (Auto) 61.6 Lymph % (Auto) 27.8 Harnett % (Auto) 6.7 Eos % (Auto) 3.3 Baso % (Auto) 0.6 Neut # (Auto) 4000 Lymph # (Auto) 1800 Harnett # (Auto) 400 Eos # (Auto) 200 Baso # (Auto) 0 PT 11.2 INR 1.0 APTT 30 Sodium 134 L Potassium 3.8 Chloride 102 Carbon Dioxide 25 BUN 17 Creatinine 0.63 Estimated GFR > 60 BUN/Creatinine Ratio 27.0 H Glucose 110 Calcium 9.2 Magnesium 2.1 Total Bilirubin 0.4 AST 28 ALT 22 Alkaline Phosphatase 99 Total Creatine Kinase 68 CK-MB (CK-2) TNP CK-MB (CK-2) Rel Index TNP Troponin I < 0.012 Total Protein 7.3 Albumin 4.3 Globulin 3.0 Albumin/Globulin Ratio 1.4 Lipase 121 12/23/22 16:20 WBC RBC Hgb Hct MCV MCH MCHC RDW Plt Count Neut % (Auto) Lymph % (Auto) Harnett % (Auto) Eos % (Auto) Baso % (Auto) Neut # (Auto) Lymph # (Auto) Harnett # (Auto) Eos # (Auto) Baso # (Auto) PT INR APTT Sodium Potassium Chloride Carbon Dioxide BUN Creatinine Estimated GFR BUN/Creatinine Ratio Glucose Calcium Magnesium Total Bilirubin AST ALT Alkaline Phosphatase Total Creatine Kinase 57 CK-MB (CK-2) TNP CK-MB (CK-2) Rel Index TNP Troponin I < 0.012 Total Protein Albumin Globulin Albumin/Globulin Ratio Lipase Assessment & Plan Assessment & Plan narrative: 1. Acute chest pain - Her EKG, and negative troponins are reassuring. She has no significant risk factors for CAD based on history. Differential includes cardiac etiology, reflux, anxiety, muscloskeletal. - Patient's HEART score is at most 2 making her a low risk patient. Urgent follow up with primary care is recommended for further evaluation but admission for stress testing is not at this time. Discussed with the ER provider and patient. Patient was counseled on follow up recommendations discussed above. I have utilized all available immediate resources to obtain, update, or review the patient's current medications.
== END 2022-12-23 18:39 | disposition home or self-care (01) ==
PROVIDERS: Emergency Provider Emergency Medicine; PCP Physician Assistant Medical
DX: R07.89 Other chest pain (principal)
CPT/HCPCS: 36415; 71045; 80053; 82550; 83690; 83735; 84484; 85025; 85610; 85730; 93005; 99284

== ENCOUNTER → 2023-01-19 08:27 | Outpatient (CLI) | payer OTHER, SELFPAY ==
--- NOTE | 2023-01-19 | DI.NM.S_ITS ---
PROCEDURE: NM DRE PERF SPECT REST & STR Rest and exercise myocardial perfusion SPECT with gated imaging and ejection fraction RADIOPHARMACEUTICAL: 11.5 mCi Tc-99m sestamibi IV at rest and 20.7 mCi Tc-99m sestamibi IV at peak exercise. A 2 day-protocol was performed. INDICATIONS: ROUTINE SCREEENING;Other chest pain TECHNIQUE: Radiopharmaceutical was injected at peak stress test, and also at rest. SPECT images were obtained. SPECT myocardial perfusion images were displayed in short axis, horizontal long axis, and vertical long axis views. Gated images were reviewed using Editorially software. COMPARISON: None. CARDIAC STRESS: A standard Saeed treadmill exercise tolerance test was performed by the patient under the supervision of an attending staff. The patient exercised for 9 minutes and 54 seconds; functional aerobic impairment (CEZAR) is -47%. Hemodynamic data: There is normal blood pressure and heart rate response to exercise stress. Patient achieved 103% of maximum predicted heart rate at peak exercise. Symptoms: Patient denied chest pain during exercise. EKG: No diagnostic EKG changes of ischemia; rare PVC. FINDINGS: Raw data: There is good myocardial labeling by radiotracer. No significant motion artifacts. Xnnu-ih-[id number] ratio is 0.32 (normal is less than 0.38 for sestamibi tracer, and less than 0.50 for thallium tracer). Left ventricle function: Gated images demonstrate normal left ventricle wall thickening. No segmental wall motion abnormality. No transient ischemic dilation; TID is 0.84 (normal less than 1.3). The left ventricle resting end-diastolic volume is 102 mL. Left ventricle stress ejection fraction is 86%; normal values are above 45%. Myocardial perfusion: There is normal distribution of activity in the left and right ventricular myocardium. No fixed or reversible perfusion defects. IMPRESSION: Low risk, normal treadmill nuclear stress test with excellent exercise tolerance (CEZAR -47%). Normal left ventricular size and function. No angina during the study. Target heart rate achieved. Dictated by: Ciara Cobb MD on 01/20/2023 at 12:56 Approved by: Ciara Cobb MD on 01/20/2023 at 12:58
--- NOTE | 2023-01-19 | DI.MG.S_ITS ---
BILATERAL DIGITAL SCREENING MAMMOGRAM 3D/2D WITH CAD: 01/19/2023 CLINICAL: Routine screening. Personal history of left breast cancer. Family history of breast cancer. Comparison is made to exams dated: 06/26/2021 mammogram, 05/28/2020 mammogram, and 05/27/2019 mammogram - [facility]. Both breasts are extremely dense, which lowers the sensitivity of mammography (category d />75% glandular tissue). Current study was also evaluated with a Computer Aided Detection (CAD) system. No significant masses, calcifications, or other findings are seen in either breast. There has been no significant interval change. IMPRESSION: NEGATIVE There is no mammographic evidence of malignancy. A 1 year screening mammogram is recommended. This exam was interpreted at Station ID: [id number]. NOTE: For mammograms, a report in lay terms will be sent to the patient. Approximately 15% of breast malignancies will not be visualized mammographically. In the management of a palpable breast mass, a negative mammogram must not discourage biopsy of a clinically suspicious lesion. Electronically Signed By: Rey michaud/sofi:01/19/2023 09:01:52 copy to: RAJESH GATES letter sent: Normal Exam ACR BI-RADS Category 1: Negative [id number]
== END ==
PROVIDERS: PCP Physician Assistant Medical; Referring Provider Physician Assistant Medical; Visit Provider Physician Assistant Medical
DX: R07.89 Other chest pain (principal); Z12.31 Encounter for screening mammogram for malignant neoplasm of breast; Z85.3 Personal history of malignant neoplasm of breast; Z80.3 Family history of malignant neoplasm of breast
CPT/HCPCS: 77063; 77067; 78452; 93017; A9502

== ENCOUNTER → 2024-04-07 16:37 | Outpatient (CLI) | payer OTHER, SELFPAY ==
--- NOTE | 2024-04-07 16:38 | DI.MG.S_ITS ---
BILATERAL DIGITAL SCREENING MAMMOGRAM 3D/2D WITH CAD POST LUMPECTOMY: 04/07/2024 CLINICAL: Routine screening. Personal history of right breast cancer. Family history of Breast cancer. Comparison is made to exams dated: 01/19/2023 mammogram, 06/26/2021 mammogram, and 05/28/2020 mammogram - [facility]. The breasts are extremely dense, which lowers the sensitivity of mammography (category d />75% glandular tissue). Current study was also evaluated with a Computer Aided Detection (CAD) system. There are benign calcifications in both breasts. There also are benign post operative findings in the left breast. No significant masses, calcifications, or other findings are seen in either breast. There has been no significant interval change. IMPRESSION: BENIGN There is no mammographic evidence of malignancy. A 1 year screening mammogram is recommended. This exam was interpreted at Station ID: [id number]. NOTE: For mammograms, a report in lay terms will be sent to the patient. Approximately 15% of breast malignancies will not be visualized mammographically. In the management of a palpable breast mass, a negative mammogram must not discourage biopsy of a clinically suspicious lesion. Electronically Signed By: Fritz [email or web address]/sofi:04/08/2024 08:09:11 copy to: RAJESH GATES letter sent: Normal Exam ACR BI-RADS Category 2: Benign
== END ==
LOC: MAMMO 16:38
PROVIDERS: PCP Physician Assistant Medical; Referring Provider Physician Assistant Medical; Visit Provider Physician Assistant Medical
DX: Z12.31 Encounter for screening mammogram for malignant neoplasm of breast (principal); Z85.3 Personal history of malignant neoplasm of breast; Z80.3 Family history of malignant neoplasm of breast; R92.343 Mammographic extreme density, bilateral breasts
CPT/HCPCS: 77063; 77067